=== PATIENT | female | born 1985 | race Caucasian/White ===

== ENCOUNTER → 2017-03-21 14:33 | Emergency (ER) | payer SELFPAY | END | disposition home or self-care (01) | LOC: OHCORT 14:33 | DX: Z02.1 Encounter for pre-employment examination (principal) ==

== ENCOUNTER → 2017-12-16 12:21 | Emergency (ER) | payer SELFPAY ==
[~2017-12-16 12:21] MED LIST: PPD test dose* 5 TU/0.1 ML TEST (*USE PPD ORDER SET*) ONE
== END | disposition home or self-care (01) ==
LOC: UCCORT 12:21
DX: Z00.00 Encounter for general adult medical examination without abnormal findings (principal); Z11.1 Encounter for screening for respiratory tuberculosis